=== PATIENT | female | born 1990 | race American Indian/Alaskan Native ===

== ENCOUNTER 2019-05-02 07:51 | Outpatient (CLI) | payer MEDICAID ==
[2019-05-02 08:17] VITALS: BP 108/59
--- NOTE | 2019-05-02 09:54 | Ultrasound Report ---
ULTRASOUND BIOPHYSICAL PROFILE ULTRASOUND OB LIMITED INDICATION: well being TECHNIQUE: Transabdominal ultrasound imaging. COMPARISON: None FINDINGS: breathing movement = 2 Gross body movement = 2 tone = 2 Qualitative amniotic fluid volume = 2 Total biophysical score = 8/8 Amniotic fluid index is 9.4 cm. Presentation is cephalic. heart rate is 137 beats per minute. IMPRESSION: biophysical profile equals 8/8. Signer Name: Jarod Castro Jr, MD Signed: 05/02/2019 9:50 AM Workstation Name: [id number]
== END 2019-05-02 09:55 | disposition home or self-care (01) ==
LOC: TRG 07:51
PROVIDERS: ATTEND Obstetrics & Gynecology
DX: Z34.93 Encounter for supervision of normal pregnancy, unspecified, third trimester (principal); Z3A.37 37 weeks gestation of pregnancy
CPT/HCPCS: 59025; 76815; 76819